=== PATIENT | male | born 1995 | race Caucasian/White ===

== ENCOUNTER 2017-07-20 14:34 | Emergency (ER) | payer BC ==
[~2017-07-20] VITALS: Ht 190.5 cm; Wt 81.8 kg
[2017-07-20 14:39] VITALS: BP 127/73; PULSE 112; TEMP 97.9
[2017-07-20] MEDS ORDERED: VYVANSE60 MG PO (14:42)
[2017-07-20] MEDS ORDERED: WELLBUTRIN SR150 M1 PO (14:42)
[2017-07-20] MEDS ORDERED: PROZAC 20MG20 MG PO (14:43)
[2017-07-20] MEDS ORDERED: NORCO 325 MG-7.1 TAB PO (16:11)
[2017-07-21] MEDS ORDERED: ZOFRAN8 MG PO (11:33)
== END 2017-07-20 16:27 | disposition home or self-care (01) ==
LOC: COL.ER 14:34
DX: S82.002A Unspecified fracture of left patella, initial encounter for closed fracture (principal); F90.9 Attention-deficit hyperactivity disorder, unspecified type; F32.9 Major depressive disorder, single episode, unspecified; F41.9 Anxiety disorder, unspecified; W00.0XXA Fall on same level due to ice and snow, initial encounter; Y92.410 Unspecified street and highway as the place of occurrence of the external cause
CPT/HCPCS: L1830

== ENCOUNTER 2017-07-21 09:39 | Emergency (ER) | payer BC ==
[~2017-07-21] VITALS: Ht 190.5 cm; Wt 81.8 kg
[~2017-07-21 09:39] MED LIST: NORCO 325 MG-7.1 TAB PO; PROZAC 20MG20 MG PO; VYVANSE60 MG PO; WELLBUTRIN SR150 M1 PO
[2017-07-21 09:46] VITALS: BP 121/74; TEMP 98.1
[2017-07-21] MEDS ORDERED: ZOFRAN8 MG PO (11:33)
[2017-07-21 12:13] VITALS: PULSE 105
== END 2017-07-21 12:14 | disposition home or self-care (01) ==
LOC: COL.ER 09:39
DX: R11.2 Nausea with vomiting, unspecified (principal); S82.002A Unspecified fracture of left patella, initial encounter for closed fracture; W19.XXXA Unspecified fall, initial encounter
CPT/HCPCS: J2270; J2550